=== PATIENT | male | born 1950 | race African-American/Black ===

== ENCOUNTER 2017-04-27 12:30 | Emergency (ER) | payer OTHER, MEDICAID ==
[~2017-04-27] VITALS: Ht 175.3 cm; Wt 77.0 kg
[2017-04-27] MEDS ORDERED: KETOROLAC 60MG/2ML VIAL IM STA (14:45)
[2017-04-27 15:18] LABS: HEMATOCRIT. 40.1 % (42.0-52.0); HEMOGLOBIN. 13.2 g/dL (14.0-18.0); MEAN CORPUSCULAR HEMOGLOBIN 26.2 pg (28.0-32.0); MEAN CORPUSCULAR VOLUME 79.4 fL (80.0-94.0); MEAN PLATELET VOLUME 7.7 fl (7.4-10.4); PLATELET 252 x1000/uL (130-400); RED BLOOD CELL COUNT 5.05 mill/uL (4.7-6.1); RED CELL DISTRIBUTION WIDTH 14.5 % (11.6-14.6)
[2017-04-27 15:22] LABS: CHLORIDE 102 mEq/L (98-107)
[2017-04-27 15:23] LABS: PROTHROMBIN TIME 10.7 sec (9.4-11.6)
[2017-04-27 15:25] LABS: CARBON DIOXIDE 29 mEq/L (21-32)
[2017-04-27 15:37] LABS: PLATELET ESTIMATE NORMAL
[2017-04-27 16:14] LABS: CLARITY URINE CLOUDY (CLEAR); COLOR URINE YELLOW (YELLOW); GLUCOSE URINE NEGATIVE (NEGATIVE); KETONES URINE NEGATIVE (NEGATIVE); LEUKOCYTE ESTERASE URINE NEGATIVE (NEGATIVE); NITRITE URINE NEGATIVE (NEGATIVE); OCCULT BLOOD URINE 3+ (NEGATIVE); PROTEIN URINE 2+ (NEGATIVE); SPECIFIC GRAVITY URINE 1.028 (1.005-1.030); UROBILINOGEN URINE 0.2 E.U./dL (0.2-1.0)
[2017-04-27 16:57] LABS: *AMPHETAMINES SCREEN URINE PRESUMTIVE POSITIVE (NEGATIVE); *BARBITURATES SCREEN URINE NEGATIVE (NEGATIVE); *BENZODIAZEPINES SCREEN URINE NEGATIVE (NEGATIVE); *COCAINE SCREEN URINE NEGATIVE (NEGATIVE); CANNABINOID URINE SCREEN NEGATIVE (NEGATIVE); METHADONE URINE SCREEN NEGATIVE (NEGATIVE); OPIATES URINE SCREEN NEGATIVE (NEGATIVE); PHENCYCLIDINE URINE SCREEN NEGATIVE (NEGATIVE)
[2017-04-27 17:40] VITALS: BP 144/84
== END 2017-04-27 17:51 | disposition home or self-care (01) ==
LOC: ER 15:08
DX: N39.0 Urinary tract infection, site not specified (principal); N41.0 Acute prostatitis; R03.0 Elevated blood-pressure reading, without diagnosis of hypertension; F15.10 Other stimulant abuse, uncomplicated; F17.210 Nicotine dependence, cigarettes, uncomplicated
CPT/HCPCS: 36415; 80053; 80305; 81001; 83690; 85025; 85610; 96372; 99284; J1885